=== PATIENT | female | born 1980 | race Caucasian/White ===

== ENCOUNTER 2021-07-02 14:00 | Outpatient (REF) | payer MEDICAID, SELFPAY ==
[2021-07-02 22:10] LABS: TSH (W/Ref FT4) 0.58 uIU/mL (0.36-3.74)
== END 2021-07-02 14:01 | disposition home or self-care (01) ==
LOC: NCHCN 14:00
PROVIDERS: Visit Provider Nurse Practitioner Family
DX: Z86.39 Personal history of other endocrine, nutritional and metabolic disease (principal)
CPT/HCPCS: 84443

== ENCOUNTER 2021-08-06 14:59 | Outpatient (REF) | payer MEDICAID, SELFPAY ==
--- NOTE | 2021-08-06 11:30 | SKI_PTH ---
PATIENT: Amanda Mcrae LOC: [facility] U#:[id number] AGE/SX: 40/F ROOM: RE08/06/[address]: Keren Nash : 1980 BED: DIS: 08/06/2021 SPEC #: [id number] RECD: 08/07/21 12:40 STATUS: ESPINOZA REErna #: [id number] IRVIN: 08/06/21 11:[address]: Keren Nash DEPT: Surgical Specimen RECD BY: Adia Peña ENTERED: 08/07/21 12:41 SP TYPE: ANGELES WHITLOCK DR: Unknown,Unknown Tissues: 1 - SKIN BIOPSY(SHAVE/PUNCH) Procedures: SKIN LEVEL 4 Comments: [id number]
== END 2021-08-06 15:00 | disposition home or self-care (01) ==
LOC: NCHCN 14:59
PROVIDERS: Visit Provider Nurse Practitioner Family
DX: D23.71 Other benign neoplasm of skin of right lower limb, including hip (principal)
CPT/HCPCS: 88305

== ENCOUNTER 2022-01-08 12:21 | Outpatient (REF) | payer MEDICAID, SELFPAY ==
[2022-01-08 21:07] LABS: TSH (W/Ref FT4) 0.04 uIU/mL (0.36-3.74)
[2022-01-08 21:24] LABS: FREE T4 0.95 ng/dL (0.76-1.46)
[2022-01-09 10:43] LABS: HCG Quant, Pregnancy 96972 mIU/mL (1-3)
== END 2022-01-08 12:22 | disposition home or self-care (01) ==
LOC: NCHCN 12:21
PROVIDERS: Visit Provider Family Medicine
DX: Z33.1 Pregnant state, incidental (principal); Z86.39 Personal history of other endocrine, nutritional and metabolic disease
CPT/HCPCS: 84439; 84443; 84702

== ENCOUNTER 2023-01-16 13:52 | Outpatient (REF) | payer MEDICAID, SELFPAY ==
[2023-01-16 16:14] LABS: TSH (W/Ref FT4) 0.02 uIU/mL (0.36-3.74)
[2023-01-16 16:35] LABS: FREE T4 0.85 ng/dL (0.76-1.46)
[2023-01-19 17:20] LABS: T3, Total 133 ng/dL (97-169)
== END 2023-01-16 13:53 | disposition home or self-care (01) ==
LOC: NCHCN 13:52
PROVIDERS: PCP Nurse Practitioner Family; Visit Provider Nurse Practitioner Family
DX: E23.0 Hypopituitarism (principal); E05.90 Thyrotoxicosis, unspecified without thyrotoxic crisis or storm; Z86.39 Personal history of other endocrine, nutritional and metabolic disease
CPT/HCPCS: 84439; 84443; 84480

== ENCOUNTER 2023-11-25 08:29 | Outpatient (REF) | payer MEDICAID, SELFPAY ==
[2023-11-25 15:15] LABS: Anion Gap 5.2 mmol/L (3-11); BUN 11 mg/dL (7-18); CO2 28.8 mmol/L (21.0-32.0); CREATININE 0.9 mg/dL (0.55-1.02); Calcium 8.6 mg/dL (8.5-10.1); Chloride 108 mmol/L (98-107); Cholesterol 189 mg/dL (<200); Estimated GFR 81.35 (mL/min/1.73m2); FREE T4 0.68 ng/dL (0.76-1.46); Glucose 104 mg/dL (74-106); HDL Cholesterol 94 mg/dL (40-60); Potassium 4.6 mmol/L (3.5-5.1); Sodium 142 mmol/L (136-145); TSH 0.98 uIU/Ml (0.36-3.74)
[2023-11-25 15:16] LABS: HCT 43.1 % (36.0-46.0); HGB 14.2 g/dL (11.2-15.7); MCH 28.6 pg (27.0-33.0); MCHC 32.9 % (32.0-36.0); MCV 87 fL (80-95); MPV 11.6 fL (8.0-11.0); Platelet Count 238 10^3/uL (130-400); RBC 4.96 10^6/uL (3.93-5.22); RDW 12.7 % (11.7-14.6); RDW-SD 40.1 fL; WBC 6.96 10^3/uL (4.4-10.8)
[2023-11-25 15:27] LABS: Calculated LDL 90 mg/dL (<100)
[2023-11-25 15:32] LABS: Triglyceride 25 mg/dL (<150)
[2023-11-25 22:35] LABS: T3,Free 4.4 pg/mL (2.8-5.3)
== END 2023-11-25 08:30 | disposition home or self-care (01) ==
LOC: NCHCN 08:29
PROVIDERS: PCP Nurse Practitioner Family; Visit Provider Nurse Practitioner Family
DX: E04.1 Nontoxic single thyroid nodule (principal); Z00.00 Encounter for general adult medical examination without abnormal findings
CPT/HCPCS: 80048; 80061; 85027; 84439; 84443; 84481

== ENCOUNTER 2025-05-02 13:13 | Outpatient (REF) | payer MEDICAID, SELFPAY ==
--- NOTE | 2025-05-02 14:00 | PAPFT_PTH ---
PATIENT: Amanda Mcrae LOC: [facility] U#:[id number] AGE/SX: 44/F ROOM: RE05/02/[address]: Keren Nash : 1980 BED: DIS: 05/02/2025 SPEC #: [id number] RECD: 05/03/25 18:36 STATUS: ESPINOZA REErna #: [id number] IRVIN: 05/02/25 14:[address]: Keren Nash DEPT: [facility] Cytology RECD BY: Adia Peña Tissues: 1 - CX/ENDOCX FOR PAP SMEARS Procedures: PAP THIN PREP/[facility] Screening HPV DNA PROBE Comments: [id number] (HPV 16 & 18/45) (CHLAMYDIA/GC)
[2025-05-04 12:51] LABS: Chlamydia Result Negative (Negative); GC Result Negative (Negative)
== END 2025-05-02 13:14 | disposition home or self-care (01) ==
LOC: NCHCN 13:13
PROVIDERS: PCP Nurse Practitioner Family; Visit Provider Nurse Practitioner Family
DX: Z12.4 Encounter for screening for malignant neoplasm of cervix (principal)
CPT/HCPCS: 87491; 87591; 88142; 87624

== ENCOUNTER 2025-06-09 09:46 | Outpatient (REF) | payer MEDICAID, SELFPAY ==
[2025-06-09 15:16] LABS: TSH 0.38 uIU/mL (0.55-4.78)
[2025-06-09 15:21] LABS: ALT 17 U/L (10-49); AST 19 U/L (<34); Albumin 4.1 g/dL (3.4-5.0); Alkaline Phosphatase 57 U/L (46-116); Anion Gap 7.8 mmol/L (3-11); BUN 12 mg/dL (9-23); Bilirubin, Total 1.20 mg/dL (0.2-1.2); CO2 27.2 mmol/L (20.0-31.0); Calcium 8.9 mg/dL (8.3-10.6); Chloride 106 mmol/L (98-107); Glucose 101 mg/dL (74-106); Potassium 3.8 mmol/L (3.5-5.1); Sodium 141 mmol/L (136-145); Total Protein 6.5 g/dL (5.7-8.2)
[2025-06-09 23:03] LABS: T3, Total 126 ng/dL (82-158)
== END 2025-06-09 09:47 | disposition home or self-care (01) ==
LOC: NCHCN 09:46
PROVIDERS: PCP Nurse Practitioner Family; Visit Provider Nurse Practitioner Family
DX: E04.1 Nontoxic single thyroid nodule (principal); R03.0 Elevated blood-pressure reading, without diagnosis of hypertension
CPT/HCPCS: 80053; 84439; 84443; 84480